=== PATIENT | female | born 1995 | race Caucasian/White ===

== ENCOUNTER 2020-01-23 09:15 | Emergency (ER) | payer SELFPAY ==
[2020-01-23 11:09] LABS: Absolute Lymphocytes (CBC) 2.1 K/uL (0.7-4.9); Basophils % 0.5 % (0-1.3); Hematocrit 45.5 % (36.0-45.0); Lymphocytes % 30.3 % (15.3-44.8); MPV 9.2 fL (7.6-11.3)
[2020-01-23 11:26] LABS: ALT/SGPT 28 U/L (12-78); AST/SGOT 15 U/L (15-37); Albumin 4.3 g/dL (3.4-5.0); Alkaline Phosphatase 58 U/L (45-117); BUN Blood Urea Nitrogen 9 mg/dL (7-18); Bicarbonate 28 mmol/L (21-32); Bilirubin Direct < 0.1 mg/dL (0-0.2); Bilirubin Total 0.3 mg/dL (0.2-1.0); Glucose Level 96 mg/dL (74-106); Lipase 76 U/L (73-393); Potassium 3.8 mmol/L (3.5-5.1); Protein, Total 8.2 g/dL (6.4-8.2); Sodium Level 139 mmol/L (136-145)
[2020-01-23 12:05] LABS: Urine Blood NEGATIVE (NEG); Urine Glucose NEGATIVE (NEG); Urine Protein NEGATIVE (NEG); Urine pH 5.5 (5.0-7.0)
--- NOTE | 2020-01-23 12:12 | RAD REPORT ---
EXAM DESCRIPTION: CT - Abdomen Pelvis W Contrast - 01/23/2020 11:49 am CLINICAL HISTORY: ABD PAIN COMPARISON: Abdomen Pelvis W Contrast dated 02/02/2017 TECHNIQUE: Biphasic, helical CT imaging of the abdomen and pelvis was performed following 100 ml non -ionic IV contrast. No oral contrast administered. All CT scans are performed using dose optimization technique as appropriate and may include automated exposure control or mA/KV adjustment according to patient size. FINDINGS: No suspicious findings in the lung bases. Liver shows a mild diffuse fatty infiltration. No focal liver lesion. Liver is upper normal in size n o spleen or pancreatic abnormality identified. Gallbladder and biliary tree within normal limits. Gal lstones can be occult but no suspicion for active gallbladder process. Symmetric renal function is seen with no hydronephrosis or suspicious renal mass. No pyelonephritis o r acute parenchymal process. Urinary bladder is contracted limiting detail. No bladder calculus. No a drenal abnormalities. No uterine abnormality. Normal size left ovary contains a 12 millimeter cyst. Normal size right ovary contains a 5.1 centimeter cyst. This is homogeneous in attenuation with no suspicious characteristic s other than size. No cyst rupture or hemorrhage identified. No dilated bowel loops or bowel wall thickening. No appendicitis findings. No free air, free fluid or inflammatory stranding. Patient has a very minimal 12 millimeter sized fat only umbilical hernia. N o other hernia. No mass or bulky lymphadenopathy. No suspicious bony findings. IMPRESSION: Contrast enhanced CT abdomen and pelvis showing no emergent finding. Patient has a 5.1 centimeter right ovarian cyst. No suspicious characteristics other than size. This can be monitored for involution with follow-up pelvic ultrasound in 3-4 months. Mild diffuse fatty infiltration of a upper normal size liver.
--- NOTE | 2020-01-23 12:28 | EDPHYS ---
Physician Documentation [facility] Name: Krystal Tanner Age: 24 yrs Sex: Female : 1995 Arrival Date: 01/23/2020 Time: 09:17 Bed 20 Private MD: ED Physician Abelino Teran HPI: 01/22 10:30 This 24 yrs old Female presents to ER via Ambulatory with complaints of jr8 Abdominal Pain, Low Back Pain. 10:30 The patient presents with abdominal pain in the lower abdomen. Onset: The jr8 symptoms/episode began/occurred gradually, 2 day(s) ago. The symptoms radiate to back. Associated signs and symptoms: Pertinent positives: diarrhea, nausea. The symptoms are described as crampy. Modifying factors: The symptoms are alleviated by nothing, the symptoms are aggravated by food. Severity of pain: At its worst the pain was moderate in the emergency department the pain is unchanged. The patient has experienced similar episodes in the past, several times. The patient has not recently seen a physician. Patient stated that she has been dealing with lower abdominal pain and diarrhea for several years. Came to ED today for worsening of pain. Has not been able to see GI physician . 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 - Social history:: Smoking status: Patient denies any tobacco usage or history of. ROS: 10:30 Eyes: Negative for injury, pain, redness, and discharge, ENT: Negative for injury, jr8 pain, and discharge, Neck: Negative for injury, pain, and swelling, Cardiovascular: Negative for chest pain, palpitations, and edema, Respiratory: Negative for shortness of breath, cough, wheezing, and pleuritic chest pain, Back: Negative for injury and pain, MS/Extremity: Negative for injury and deformity, Skin: Negative for injury, rash, and discoloration, Neuro: Negative for headache, weakness, numbness, tingling, and seizure. 10:30 Abdomen/GI: Positive for abdominal pain, nausea, diarrhea, abdominal cramps, Negative for hematemesis, black/tarry stool, rectal pain, rectal bleeding, bowel incontinence, flatulence. Exam: 10:30 Eyes: Pupils equal round and reactive to light, extra-ocular motions intact. Lids and jr8 lashes normal. Conjunctiva and sclera are non-icteric and not injected. Cornea within normal limits. Periorbital areas with no swelling, redness, or edema. ENT: Nares patent. No nasal discharge, no septal abnormalities noted. Tympanic membranes are normal and external auditory canals are clear. Oropharynx with no redness, swelling, or masses, exudates, or evidence of obstruction, uvula midline. Mucous membranes moist. Neck: Trachea midline, no thyromegaly or masses palpated, and no cervical lymphadenopathy. Supple, full range of motion without nuchal rigidity, or vertebral point tenderness. No Meningismus. Cardiovascular: Regular rate and rhythm with a normal S1 and S2. No gallops, murmurs, or rubs. Normal PMI, no JVD. No pulse deficits. Respiratory: Lungs have equal breath sounds bilaterally, clear to auscultation and percussion. No rales, rhonchi or wheezes noted. No increased work of breathing, no retractions or nasal flaring. Back: No spinal tenderness. No costovertebral tenderness. Full range of motion. Skin: Warm, dry with normal turgor. Normal color with no rashes, no lesions, and no evidence of cellulitis. MS/ Extremity: Pulses equal, no cyanosis. Neurovascular intact. Full, normal range of motion. Neuro: Awake and alert, GCS 15, oriented to person, place, time, and situation. Cranial nerves II-XII grossly intact. Motor strength 5/5 in all extremities. Sensory grossly intact. Cerebellar exam normal. Normal gait. 10:30 Abdomen/GI: Inspection: obese Bowel sounds: active, all quadrants, Palpation: soft, in all quadrants, mild abdominal tenderness, in the right lower quadrant and left lower quadrant, mass, is not appreciated, rebound tenderness, is not appreciated, voluntary guarding, is not appreciated, involuntary guarding, is not appreciated, no appreciated organomegaly, Indicators: McBurney's point is not tender, Retana's sign is negative, Rovsing's sign is negative, Liver: tenderness, is not appreciated. Vital Signs: 09:25 BP 147 / 90; Pulse 96; Resp 18; Temp 97.7; Pulse Ox 100% on R/A; Weight 139.25 kg; hb Height 5 ft. 3 in. (160.02 cm); Pain 10/10; 12:26 BP 142 / 98; Pulse 86; Resp 18; Pulse Ox 98% ; ah 12:45 BP 132 / 80; Pulse 83; Resp 17; Pulse Ox 97% ; ah 09:25 Body Mass Index 54.38 (139.25 kg, 160.02 cm) hb MDM: 10:09 Patient medically screened. [facility] 12:25 Data reviewed: vital signs, nurses notes, lab test result(s), radiologic studies, CT [facility] scan. Data interpreted: Pulse oximetry: on room air is 100 %. Interpretation: normal. Counseling: I had a detailed discussion with the patient and/or guardian regarding: the historical points, exam findings, and any diagnostic results supporting the discharge/admit diagnosis, lab results, radiology results, the need for outpatient follow up, a supervisor edging, to return to the emergency department if symptoms worsen or persist or if there are any questions or concerns that arise at home. Response to treatment: the patient's symptoms have mildly improved after treatment. ED course: No acute findings on CT or labs. Will d/c home to f/u with GI. Since diarrhea has been going on for so long and worsening will put on Abx . 01/22 10:09 Order name: Basic Metabolic Panel; Complete Time: : [facility] 01/22 10:09 Order name: CBC with Diff; Complete Time: 11: 01/22 10:09 Order name: Hepatic Function; Complete Time: : 01/22 10:09 Order name: Lipase; Complete Time: : [facility] 01/22 11:52 Order name: Urine Dipstick--Ancillary (enter results); Complete Time: 12: 01/22 11:56 Order name: Urine --Ancillary (enter results) 01/22 10:09 Order name: IV Saline Lock; Complete Time: : [facility] 01/22 10:09 Order name: Labs collected and sent; Complete Time: : [facility] 01/22 10:09 Order name: Urine Test (obtain specimen); Complete Time: 11: 01/22 10:09 Order name: Urine Dipstick-Ancillary (obtain specimen); Complete Time: : [facility] 01/22 11:28 Order name: CT Abd/Pelvis - IV Contrast Only; Complete Time: 12:18 jr8 Administered Medications: 12:28 Drug: TORadol - Ketorolac 15 mg Route: IVP; Site: right antecubital; 13:02 Follow up: Response: No adverse reaction 12:28 Drug: Bentyl 20 mg Route: PO; 13:02 Follow up: Response: No adverse reaction Disposition: 15:43 Co-signature as Attending Physician, Abelino Teran MD I agree with the assessment and kdr plan of care. Disposition: 01/23/20 12:27 Discharged to Home. Impression: Diarrhea, unspecified, Abdominal and pelvic pain. - Condition is Stable. - Discharge Instructions: Abdominal Pain, Adult, Diarrhea, Adult. - Prescriptions for Bentyl 20 mg Oral Tablet - take 1 tablet by ORAL route every 6 hours As needed; 20 tablet. Cipro 500 mg Oral Tablet - take 1 tablet by ORAL route every 12 hours for 10 days; 20 tablet. Flagyl 500 mg Oral Tablet - take 1 tablet by ORAL route every 6 hours for 10 days; 40 tablet. Zofran 4 mg Oral Tablet - take 1 tablet by ORAL route every 12 hours As needed; 20 tablet. - Medication Reconciliation Form, Thank You Letter, Antibiotic Education, Prescription Opioid Use form. - Follow up: Nancy Dalal MD; When: 2 - 3 days; Reason: Recheck today's complaints, Continuance of care, Re-evaluation by your physician. - Problem is new. - Symptoms have improved. Signatures: Dispatcher [employer] EDMS Abelino Teran MD MD [facility] Bridger Cadet PA PA jr8 Sharri Del Rio RN RN Jud Leggett RN RN Corrections: (The following items were deleted from the chart) 13:09 12:27 01/23/2020 12:27 Discharged to Home. Impression: Diarrhea, unspecified; Abdominal ah and pelvic pain. Condition is Stable. Forms are Medication Reconciliation Form, Thank You Letter, Antibiotic Education, Prescription Opioid Use. Follow up: Nancy Dalal; When: 2 - 3 days; Reason: Recheck today's complaints, Continuance of care, Re-evaluation by your physician. Problem is new. Symptoms have improved. jr8
--- NOTE | 2020-01-23 12:28 | ER ---
Nurse's Notes [facility] Name: Krystal Tanner Age: 24 yrs Sex: Female : 1995 Arrival Date: 01/23/2020 Time: 09:17 Bed 20 Private MD: Diagnosis: Diarrhea, unspecified;Abdominal and pelvic pain Presentation: 01/22 09:25 Chief complaint: lower abdominal pain and N?V/D x 2 days. Coronavirus screen: Proceed hb with normal triage. Ebola Screen: No symptoms or risks identified at this time. Initial Sepsis Screen: Does the patient meet any 2 criteria? HR > 90 bpm. No. Patient's initial sepsis screen is negative. Does the patient have a suspected source of infection? No. Patient's initial sepsis screen is negative. Risk Assessment: Do you want to hurt yourself or someone else?. Onset of symptoms was January 20, 2020. 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 - Social history:: Smoking status: Patient denies any tobacco usage or history of. Screenin:05 Abuse screen: Denies threats or abuse. Nutritional screening: No deficits noted. Tuberculosis screening: No symptoms or risk factors identified. Fall Risk None identified. Assessment: 10:10 General: Appears in no apparent distress. Behavior is calm, cooperative, appropriate ah for age. Pain: Complains of pain in right lower quadrant and left lower quadrant. Neuro: Level of Consciousness is awake, alert, obeys commands, Oriented to person, place, time, situation, Appropriate for age. Cardiovascular: Denies chest pain, Heart tones S1 S2 Capillary refill < 3 seconds Patient's skin is warm and dry. Respiratory: Airway is patent Respiratory effort is even, unlabored. GI: Bowel sounds present X 4 quads. Abdomen is tender to palpation in right lower quadrant and left lower quadrant. : Urine is clear. Derm: Skin is intact, is healthy with good turgor. 11:30 Reassessment: Patient and/or family updated on plan of care and expected duration. Pain ah level reassessed. Patient is alert, oriented x 3, equal unlabored respirations, skin warm/dry/pink. Awaiting on results from CT and labs. No needs voiced at this time. 13:00 Reassessment: Patient and/or family updated on plan of care and expected duration. Pain ah level reassessed. Discharge instructions given at this time and educated on prescriptions. Pt voiced understanding. Vital Signs: 09:25 BP 147 / 90; Pulse 96; Resp 18; Temp 97.7; Pulse Ox 100% on R/A; Weight 139.25 kg; hb Height 5 ft. 3 in. (160.02 cm); Pain 10/10; 12:26 BP 142 / 98; Pulse 86; Resp 18; Pulse Ox 98% ; ah 12:45 BP 132 / 80; Pulse 83; Resp 17; Pulse Ox 97% ; ah 09:25 Body Mass Index 54.38 (139.25 kg, 160.02 cm) hb ED Course: 09:17 Patient arrived in ED. ag5 09:22 Abelino Teran MD is Attending Physician. kdr 09:26 Triage completed. hb 09:27 Arm band placed on. hb 10:05 Bridger Cadet PA is PHCP. jr8 10:07 Jud Leggett, RN is Primary Nurse. ah 10:30 Inserted saline lock: 20 gauge in right antecubital area, using aseptic technique. ah 11:31 Radiology exam delayed due to test not completed at this time. sj 11:49 CT Abd/Pelvis - IV Contrast Only In Process Unspecified. EDMS 12:26 Nancy Dalal MD is Referral Physician. jr8 13:06 Patient has correct armband on for positive identification. Placed in gown. Bed in low ah position. Call light in reach. Side rails up X 1. Pulse ox on. NIBP on. 13:06 No provider procedures requiring assistance completed. IV discontinued, intact, ah bleeding controlled, No redness/swelling at site. Pressure dressing applied. Administered Medications: 12:28 Drug: TORadol - Ketorolac 15 mg Route: IVP; Site: right antecubital; 13:02 Follow up: Response: No adverse reaction ah 12:28 Drug: Bentyl 20 mg Route: PO; 13:02 Follow up: Response: No adverse reaction Outcome: 12:27 Discharge ordered by . jr8 13:06 Discharged to home ambulatory. 13:06 Condition: good 13:06 Discharge instructions given to patient, Instructed on discharge instructions, follow up and referral plans. Demonstrated understanding of instructions, follow-up care, medications, Prescriptions given X 4. 13:09 Patient left the ED. Signatures: Dispatcher [employer] EDMS Abelino Teran MD MD kdr Jones, Susan sj Roszak, Josh, PA PA jr8 Sharri Del Rio RN RN Jeronimo Bueno 5 Jud Leggett RN RN
[2020-01-23] MEDS ORDERED: KETOROLAC 30 MG/ML INJ ONE (12:30)
[2020-01-23] MEDS ORDERED: DICYCLOMINE HCL 10 MG CAP ONE (12:30)
[2020-01-23 13:25] VITALS: TEMP 97.7
[2020-01-23 13:30] VITALS: BP 132/80; O2SAT 97
== END 2020-01-23 13:09 | disposition home or self-care (01) ==
LOC: ER 09:15
DX: R19.7 Diarrhea, unspecified (principal)
CPT/HCPCS: 36415; 74177; 80048; 80076; 81003; 81025; 83690; 85025; 96374; 99284; Q9967

== ENCOUNTER 2022-12-24 15:39 | Emergency (ER) | payer SELFPAY ==
--- OUTSIDE RECORDS SUMMARY | 2022-12-24 15:42 | XMS REPORT | Continuity of Care Document ---
:1995 Author Organization [facility] t Address [address] [place] [id number] Care Team Providers Name Role Phone BOGDAN ELIAS Attending Clinician Unavailable Bogdan Elias MD Attending Clinician Doctor Unassigned, [place] Attending Clinician Unavailable Problems This patient has no known problems. Allergies, Adverse Reactions, Alerts Allergy Allergy Status Severity Reaction(s) Onset Inactive Treating Comm ents Source Name Type Date Date Clinician NO KNOWN Drug Active Univers ALLERGIE Class [facility] Social History Social Habit Start Date Stop Date Quantity Comments Source Sex Assigned At [facility] Exposure to Not sure [facility] SARS[facility] Tobacco use and 2020-04-05 2020-04-05 Never used [facility] exposure 00:00:00 00:00:00 [facility] Smoking Status Start Date Stop Date Source Unknown if ever smoked [facility] Never smoker [facility] Medications Ordered Filled Start Stop Current Ordering Indication Dosage Frequency Signature Comments Components Source Medication Medication Date Date Medication? Clinician (SIG) Name Name neomycin-po 2019-07 Yes INSTILL Uni vers lymyxin-dex 0-13 ONE (1) ity o f amethasone 00:00: DROP(S[place] 3.5mg/mL-10 00 EACH EYE Medi betsy ,000 EVERY Branch unit/mL-0.1 THREE % HOURS FOR ophthalmic 1 WEEK. suspension drops neomycin-po 2019-07 Yes INSTILL Uni vers lymyxin-dex 0-13 ONE (1) ity o f amethasone 00:00: DROP(S) [place] 3.5mg/mL-10 00 EACH EYE Medi betsy ,000 EVERY Branch unit/mL-0.1 THREE % HOURS FOR ophthalmic 1 WEEK. suspension drops ofloxacin 2019-07- No [id number] 2[drp] Place 2 Univers 0.3 % otic 0-05 10-20 Drops in ity of drops 00:00: 04:59 right ear [place] 00 :00 2 (two) Medical times Branch daily for 14 days. ofloxacin 2019-07- No [id number] 2[drp] Place 2 Univers 0.3 % otic 0-05 10-20 Drops in ity of drops 00:00: 04:59 right ear [place] 00 :00 2 (two) Medical times Branch daily for 14 days. amoxicillin 2019-07 Yes 1{tbl} Take 1 Un mg -clavulanat 0-02 tablet by ity of e 875-125 00:00: mouth 2 [place] mg per 00 (two) Medical tablet times Branch daily. amoxicillin 2019-07 Yes 1{tbl} Take 1 Un mg -clavulanat 0-02 tablet by ity of e 875-125 00:00: mouth 2 [place] mg per 00 (two) Medical tablet times Branch daily. amoxicillin 2019-07 Yes 1{tbl} Take 1 Un mg -clavulanat 0-02 tablet by ity of e 875-125 00:00: mouth 2 [place] mg per 00 (two) Medical tablet times Branch daily. amoxicillin 2019-07 Yes 1{tbl} Take 1 Un mg -clavulanat 0-02 tablet by ity of e 875-125 00:00: mouth 2 [place] mg per 00 (two) Medical tablet times Branch daily. naproxen 2017-0 Yes 550mg Take 1 Univer s sodium 550 6-28 tablet by ity of mg tablet 00:00: mouth 2 [place] 00 (two) Medical times Branch daily with meals. naproxen 2017-0 Yes 550mg Take 1 Univer s sodium 550 6-28 tablet by ity of mg tablet 00:00: mouth 2 [place] 00 (two) Medical times Branch daily with meals. naproxen 2017-0 Yes 550mg Take 1 Univer s sodium 550 6-28 tablet by ity of mg tablet 00:00: mouth 2 [place] 00 (two) Medical times Branch daily with meals. naproxen 2017-0 Yes 550mg Take 1 Univer s sodium 550 6-28 tablet by ity of mg tablet 00:00: mouth 2 [place] 00 (two) Medical times Branch daily with meals. naproxen 2017-0 Yes 550mg Take [address] [facility] sodium 550 6-28 tablet by ity of mg tablet 00:00: mouth 2 00 (two) [facility] daily with meals. Immunizations Ordered Filled Immunization Date Status Comments Sour e Immunization Name Name HEPATITIS A 2001-07-31 Completed University of 00:00:00 [facility] HEPATITIS A 2001-07-31 Completed University 00:00:00 [facility] HEPATITIS A 2001-07-31 Completed University 00:00:00 [facility] HEPATITIS A 2001-07-31 Completed University 00:00:00 [facility] HEPATITIS A 2001-07-31 Completed University 00:00:00 [facility] Vital Signs Vital Name Observation Time Observation Value Comments Source Body temperature 2020-05-10 14:40:00 36.56 [facility] Body height 2020-05-10 14:40:00 160 cm [facility] Body weight 2020-05-10 14:40:00 136.215 kg [facility] BMI 2020-05-10 14:40:00 53.20 kg/m2 [facility] Body temperature 2020-04-05 13:14:00 37.06 [facility] Body height 2020-04-05 13:14:00 160 cm [facility] Body weight 2020-04-05 13:14:00 134.463 kg [facility] BMI 2020-04-05 13:14:00 52.51 kg/m2 [facility] Procedures Procedure Date / Time Performed Performing Clinician Sour e REFERRAL- 2020-04-02 05:01:00 Doctor Unassigned, No [facility] REQUEST/RESPONSE Name Medical [place] Encounters Start End Encounter Admission Attending Care Care Encounter Source Date/Time Date/Time Type Type Clinicians Facility Department ID 2020-05-10 2020-05-10 Outpatient R CURT RIWALDO [facility] [id number] Univers 08:30:00 08:30:00 BOGDAN milian [facility] 2020-05-10 2020-05-10 Office Curt RIWALDO [id number] Univers 08:12:58 08:27:58 Visit Bogdan JAMISON [id number] i ty of [facility] [id number] [id number] [address] 2020-04-05 2020-04-05 Office [facility] [id number] [facility] 07:53:36 09:01:14 Visit Bogdan JAMISON [id number] i ty of [facility] [id number] [id number] [address] 2020-04-05 2020-04-05 [facility] [id number] Univers 08:15:00 08:15:00 BOGDAN milian of [facility] 2020-04-02 2020-04-02 Orders Doctor HEIDI [id number] Univers 00:00:00 00:00:00 Only Unassigned, JASSON [id number] ity of [place] [facility] [id number] [place] [id number] [place] [address] Branch Results This patient has no known results.
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
[2022-12-24 16:41] LABS: Absolute Lymphocytes (CBC) 3.5 K/uL (0.7-4.9); Lymphocytes % 32.7 % (15.3-44.8); MCV 83.9 fL (80-100); RBC Red Blood Cell Count 5.12 M/uL (3.86-4.86)
[2022-12-24] MEDS ORDERED: CEFAZOLIN SODIUM 1 GM/VIAL ONE (16:41)
[2022-12-24] MEDS ORDERED: NA CHLORIDE 0.9% 1,000 ML ONE (16:42)
[2022-12-24] MEDS ORDERED: FENTANYL CITR 100 MCG/2 ML ONE ×2 (16:42→17:40)
[2022-12-24] MEDS ORDERED: TETANUS & DIPHTHERIA TOX,ADULT 0.5 ML VIAL ONE (16:42)
[2022-12-24 16:44] LABS: Specific Gravity 1.005 (1.005-1.030)
[2022-12-24 16:54] LABS: Potassium 3.7 mEq/L (3.5-5.1)
[2022-12-24] MEDS ORDERED: NA CHLORIDE 0.9% 100 ML ONE (17:02)
[2022-12-24] MEDS ORDERED: ONDANSETRON 4 MG/2 ML VIAL ONE (17:12)
[2022-12-24] MEDS ORDERED: IBUPROFEN 400 MG TAB ONE (17:41)
[2022-12-24] MEDS ORDERED: HYDROCODONE/APAP 7.5/325 MG TAB ONE (17:41)
[2022-12-24 18:46] LABS: Urine Bacteria <20 /HPF (<20); Urine Bilirubin NEGATIVE (Negative); Urine Blood 2+ (Negative); Urine Clarity Clear (Clear); Urine Color Light-Yellow (Yellow); Urine Glucose NEGATIVE (Negative); Urine Mucus Slight /HPF (None Seen); Urine Protein TRACE (Negative); Urine RBC <5 /HPF (None Seen); Urine Urobilinogen Normal (Normal)
[2022-12-24] MEDS ORDERED: LIDOCAINE 1% W/EPI 1:100,000 50 ML MDV ONE (18:46)
--- NOTE | 2022-12-24 18:58 | RAD REPORT ---
EXAM DESCRIPTION: RAD - Shoulder Left 2 View - 12/24/2022 6:39 pm CLINICAL HISTORY: PAIN COMPARISON: No comparisons FINDINGS: Widening of the AC joint is seen which could represent a grade 1 separation. No acute frac tures seen.
[2022-12-24 18:59] LABS: Specific Gravity > 1.030 (1.005-1.030)
--- NOTE | 2022-12-24 19:00 | RAD REPORT ---
EXAM DESCRIPTION: RAD - Hand Left 3 View - 12/24/2022 6:39 pm CLINICAL HISTORY: PAIN COMPARISON: No comparisons FINDINGS: Lucency is seen involving the base of the fifth metacarpal, likely nondisplaced fracture. No dislocation.
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
[2022-12-24 20:46] VITALS: TEMP 98.8
[2022-12-24 20:52] VITALS: BP 138/102; O2SAT 97
== END 2022-12-24 20:36 | disposition home or self-care (01) ==
LOC: ER 15:39
PROC: 0HQ1XZZ Repair Face Skin, External Approach (ICD-10-PCS; principal; 2022-12-24)
DX: S01.112A Laceration without foreign body of left eyelid and periocular area, initial encounter (principal); S62.347A Nondisplaced fracture of base of fifth metacarpal bone, left hand, initial encounter for closed fracture; S43.122A Dislocation of left acromioclavicular joint, 100%-200% displacement, initial encounter; Z23 Encounter for immunization
CPT/HCPCS: 36415; 70450; 70486; 71260; 72125; 74177; 80048; 81001; 81025; 85025; 86850; 86900; 86901; 90471; 90714; 96361; 96365; 96366; 96375; 99285; J0690; J2405; J3010; J7030; Q9967

== ENCOUNTER 2023-01-03 10:53 | Emergency (ER) | payer SELFPAY ==
--- OUTSIDE RECORDS SUMMARY | 2023-01-03 10:56 | XMS REPORT | Continuity of Care Document ---
:1995 Author Organization [facility] t Address [address] [place] [address] [place] [id number] Care Team Providers Name Role Phone BOGDAN ELIAS Attending Clinician Unavailable Bogdan Elias MD Attending Clinician Doctor Unassigned, [place] Attending Clinician Unavailable Problems This patient has no known problems. Allergies, Adverse Reactions, Alerts Allergy Allergy Status Severity Reaction(s) Onset Inactive Treating Comm ents Source Name Type Date Date Clinician NO KNOWN Drug Active [facility] Social [facility] Social Habit Start Date Stop Date Quantity Comments Source Sex Assigned At [facility] Exposure to Not sure [facility] SARS-CoV-2 (event) [facility] Tobacco use and 2020-04-05 2020-04-05 Never used [facility] exposure 00:00:00 00:00:00 [facility] Smoking Status Start Date Stop Date Source Unknown if ever smoked [facility] Never smoker [facility] Medications Ordered Filled Start Stop Current [...] 1 WEEK. suspension drops ofloxacin 2019-07- No [id number] 2[drp] Place 2 [facility] 0.3 % otic 0-05 10-20 Drops in ity of drops 00:00: 04:59 right ear [place] 00 :00 2 (two) [facility] daily for 14 days. ofloxacin 2019-07- No [id number] 2[drp] Place 2 [facility] 0.3 % otic [...] meals. naproxen 2017-0 Yes 550mg Take 1 Univ s sodium 550 6-28 tablet by ity of mg tablet 00:00: mouth 2 [place] (two) [facility] daily with meals. Immunizations Ordered Filled Immunization Date Status Comments Sour e Immunization Name Name HEPATITIS A 2001-07-31 Completed [facility] 00:00:00 [facility] HEPATITIS A 2001-07-31 Completed University 00:00:00 [facility] HEPATITIS A 2001-07-31 Completed [facility] 00:00:00 [facility] HEPATITIS A 2001-07-31 Completed [facility] 00:00:00 [facility] HEPATITIS A 2001-07-31 Completed [facility] 00:00:00 [facility] Vital Signs Vital Name Observation Time Observation Value Comments Source Body temperature 2020-05-10 14:40:00 36.56 Leanna [facility] Body height 2020-05-10 14:40:00 160 cm [facility] Body weight 2020-05-10 14:40:00 136.215 kg [facility] BMI 2020-05-10 14:40:00 53.20 kg/m2 [facility] Body temperature 2020-04-05 13:14:00 37.06 Leanna [facility] Body height 2020-04-05 13:14:00 160 cm [facility] Body weight 2020-04-05 13:14:00 134.463 kg [facility] BMI 2020-04-05 13:14:00 52.51 kg/m2 [facility] Procedures Procedure Date / Time Performed Performing Clinician Sour e REFERRAL- 2020-04-02 05:01:00 Doctor Unassigned, No [facility] REQUEST/RESPONSE Name Medical Branch Encounters Start End Encounter Admission Attending Care Care Encounter Source Date/Time Date/Time Type Type Clinicians Facility Department ID 2020-05-10 2020-05-10 Outpatient R CURT RIWALDO [facility] [id number] [facility] 08:30:00 08:30:00 BOGDAN milian [facility] 2020-05-10 2020-05-10 Office Curt RIWALDO [id number] [facility] 08:12:58 08:27:58 Visit Bogdan JAMISON [id number] i ty of [facility] [id number] [place] [id number] [address] 2020-04-05 2020-04-05 Office Curt [facility] [id number] [facility] 07:53:36 09:01:14 Visit Bogdan JAMISON [id number] i ty of [facility] [id number] [id number] [address] 2020-04-05 2020-04-05 [id number] [facility] 08:15:00 08:15:00 BOGDAN milian [facility] 2020-04-02 2020-04-02 Orders Doctor HEIDI [id number] Univers 00:00:00 00:00:00 Only Unassigned, JASSON [id number] ity of [place] [facility] [id number] [place] [id number] [place] [id number] Branch Results This patient has no known results.
--- NOTE | 2023-01-03 11:14 | EDPHYS ---
Physician Documentation [facility] Name: Krystal Tanner Age: 27 yrs Sex: Female : 1995 Arrival Date: 01/03/2023 Time: 10:53 Bed 12 Private MD: ED Physician Vincent Birch HPI: 01/03 13:40 This 27 yrs old Female presents to ER via Ambulatory with complaints of Suture Removal. kb 13:40 The patient has sutures on the left supraorbital ridge. Previous treatment: The patient kb was initially treated 10 day(s) ago, the [facility] was [facility] at [facility], Treatment type: The patient's original treatment included sutures. 13:40 Sutures/hina progress: The patient has no c/o's. The wound is well-healing with no kb redness, swelling, discharge, or dehiscence reported. The patient has not experienced similar symptoms in the past. The patient has not recently seen a physician. Historical: - Allergies: 10:56 No Known Allergies; ld1 - PMHx: 10:56 None; ld1 - PSHx: 10:56 ovarian cyst SX; ld1 - Immunization history:: Adult Immunizations up to date. - Social history:: Smoking status: Patient denies any tobacco usage or history of. Patient/guardian denies using alcohol. ROS: 13:41 Constitutional: Negative for fever, chills, and weight loss. kb 13:41 Skin: Positive for of the left supraorbital ridge, sutures in place. 13:41 All other systems are negative. Exam: 13:41 Constitutional: This is a well developed, well nourished patient who is awake, alert, kb and in no acute distress. Head/Face: Normocephalic, atraumatic. ENT: Moist Mucous membranes Cardiovascular: Regular rate and rhythm with a normal S1 and S2. No gallops, murmurs, or rubs. No pulse deficits. Respiratory: Respirations even and unlabored. No increased work of breathing. Talking in full sentences Abdomen/GI: Soft, non-tender. No distention Neuro: Awake and alert, GCS 15, oriented to person, place, time, and situation. Moves all extremities. Normal gait. 13:41 Skin: Wound recheck: Suture laceration closure: the wound is healing well, the edges are well approximated, no evidence of dehiscence, no drainage, no erythema, no swelling. Vital Signs: 11:00 BP 139 / 76; Pulse 79; Resp 18; Temp 97.9(TE); Pulse Ox 100% on R/A; Weight 107.05 kg; ld1 Height 5 ft. 6 in. ; Pain 0/10; 11:00 Body Mass Index 38.09 (107.05 kg, 167.64 cm) ld1 11:00 Pain Scale: Adult ld1 Procedures: 11:13 Suture/Staple removal: Removed 3 sutures, from left supraorbital ridge, site appears kb well healed, Patient tolerated well. MDM: 10:55 Patient medically screened. kb 13:42 Data reviewed: vital signs, nurses notes. Counseling: I had a detailed discussion with kb the patient and/or guardian regarding: the historical points, exam findings, and any diagnostic results supporting the discharge/admit diagnosis, the need for outpatient follow up, a family practitioner, to return to the emergency department if symptoms worsen or persist or if there are any questions or concerns that arise at home. Administered Medications: No medications were administered Disposition: 14:15 Co-signature as Attending Physician, Vincent Birch DO I was immediately available on-site ms3 in the Emergency Department for consultation in the care of the patient. Disposition Summary: 01/03/23 11:13 Discharge Ordered Location: Home Condition: Stable kb Diagnosis - Encounter for removal of sutures kb Followup: kb - With: Emergency Department - When: As needed - Reason: Worsening of condition Followup: kb - With: Private Physician - When: 2 - 3 days - Reason: Recheck today's complaints, Continuance of care, Re-evaluation by your physician Discharge Instructions: - Discharge Summary Sheet kb - Suture Removal, Care After kb Forms: - Medication Reconciliation Form kb - Thank You Letter kb - Antibiotic Education kb - Prescription Opioid Use kb - [email or web address] kb Signatures: Vy Fajardo FNP-C FNP-Vincent Estrella DO DO ms3 Leatha Birch RN RN ld1 Corrections: (The following items were deleted from the chart) 13:41 13:40 Previous treatment: The patient was initially treated kb eze
--- NOTE | 2023-01-03 11:14 | ER ---
Nurse's Notes [facility] Name: Krystal Tanner Age: 27 yrs Sex: Female : 1995 Arrival Date: 01/03/2023 Time: 10:53 Bed 12 Private MD: Diagnosis: Encounter for removal of sutures Presentation: 01/03 10:56 Chief complaint: Chief complaint: Patient states: suture removal. ld1 10:56 Coronavirus screen: At this time, the client does not indicate any symptoms associated ld1 with coronavirus-19. Ebola Screen: No symptoms or risks identified at this time. Risk Assessment: Do you want to hurt yourself or someone else? Patient reports no desire to harm self or others. Onset of symptoms was January 03, 2023 at 10:58. 10:56 Method Of Arrival: Ambulatory ld1 10:56 Acuity: ROMAN 4 ld1 11:00 Initial Sepsis Screen: Does the patient meet any 2 criteria? No. Patient's initial ld1 sepsis screen is negative. Does the patient have a suspected source of infection? No. Patient's initial sepsis screen is negative. Triage Assessment: 10:56 General: Appears in no apparent distress. comfortable, Behavior is calm, cooperative, ld1 appropriate for age. Pain: Denies pain. EENT: No signs and/or symptoms were reported regarding the EENT system. Neuro: Level of Consciousness is awake, alert, obeys commands, Oriented to person, place, time, situation. Cardiovascular: Capillary refill < 3 seconds Patient's skin is warm and dry. Respiratory: Airway is patent Respiratory effort is even, unlabored. GI: Abdomen is round non-distended. : No signs and/or symptoms were reported regarding the genitourinary system. Derm: No signs and/or symptoms reported regarding the dermatologic system. Musculoskeletal: No signs and/or symptoms reported regarding the musculoskeletal system. Historical: - Allergies: 10:56 No Known Allergies; ld1 - PMHx: 10:56 None; ld1 - PSHx: 10:56 ovarian cyst SX; ld1 - Immunization history:: Adult Immunizations up to date. - Social history:: Smoking status: Patient denies any tobacco usage or history of. Patient/guardian denies using alcohol. Screenin:00 [facility] ED Fall Risk Assessment (Adult) History of falling in the last 3 months, ld1 including since admission No falls in past 3 months (0 pts). Abuse screen: Denies threats or abuse. Denies injuries from another. Nutritional screening: No deficits noted. Tuberculosis screening: No symptoms or risk factors identified. Assessment: 11:00 Reassessment: See triage assessment. ld1 Vital Signs: 11:00 BP 139 / 76; Pulse 79; Resp 18; Temp 97.9(TE); Pulse Ox 100% on R/A; Weight 107.05 kg; ld1 Height 5 ft. 6 in. ; Pain 0/10; 11:00 Body Mass Index 38.09 (107.05 kg, 167.64 cm) ld1 11:00 Pain Scale: Adult ld1 ED Course: 10:54 Patient arrived in ED. am2 10:55 Vy Fajardo FNP-C is PHCP. kb 10:55 Vincent Birch DO is Attending Physician. kb 10:58 Triage completed. ld1 11:00 Arm band placed on right wrist. ld1 11:00 Patient has correct armband on for positive identification. Bed in low position. Call ld1 light in reach. Side rails up X2. Pulse ox on. NIBP on. Door closed. Noise minimized. Warm blanket given. 11:00 No provider procedures requiring assistance completed. Patient did not have IV access ld1 during this emergency room visit. 11:09 Skylar Crespo, RN is Primary Nurse. ss Administered Medications: No medications were administered Medication: 11:00 VIS not applicable for this client. ld1 Outcome: 11:13 Discharge ordered by MD. kb 11:17 Discharged to home ambulatory. ss 11:17 Condition: good 11:17 Discharge instructions given to patient, Instructed on discharge instructions, follow up and referral plans. wound care, Demonstrated understanding of instructions, follow-up care. 11:17 Patient left the ED. ss Signatures: Vy Fajardo FNP-C FNP-Skylar Ballesteros, TAYLOR RN Estela Chairez am2 Leatha Birch RN RN ld1 Corrections: (The following items were deleted from the chart) 10:58 10:56 Chief complaint: ld1 ld1
[2023-01-03 11:30] VITALS: BP 139/76; TEMP 97.9; O2SAT 100
== END 2023-01-03 11:17 | disposition home or self-care (01) ==
LOC: ER 10:53
DX: Z48.02 Encounter for removal of sutures (principal)
CPT/HCPCS: 99283

== ENCOUNTER 2023-04-24 10:22 | Emergency (ER) | payer SELFPAY ==
--- OUTSIDE RECORDS SUMMARY | 2023-04-24 10:26 | XMS REPORT | Continuity of Care Document ---
:1995 Author Organization [facility] t Address [address] [place] [address] [place] [id number] Care Team Providers Name Role Phone BOGDAN ELIAS Attending Clinician Unavailable Bogdan Elias MD Attending Clinician Doctor Unassigned, [place] Attending Clinician Unavailable Problems This patient has no known problems. Allergies, Adverse Reactions, Alerts Allergy Allergy Status Severity Reaction(s) Onset Inactive Treating Comm ents Source Name Type Date Date Clinician NO KNOWN Drug Active [facility] Social History Social Habit Start Date Stop Date Quantity Comments Source Sex Assigned At [facility] Exposure to Not sure [facility] SARS-CoV-2 (event) [facility] Tobacco use and 2020-04-05 2020-04-05 Never used [facility] exposure 00:00:00 00:00:00 [facility] Smoking Status Start Date Stop Date Source Unknown if ever smoked [facility] Never smoker [facility] Medications Ordered Filled Start Stop Current Ordering [...] 1 WEEK. suspension drops ofloxacin 2019-07- No [id number] 2[drp] Place 2 [facility] 0.3 % otic 0-05 10-20 Drops in ity of drops 00:00: 04:59 right ear [place] 00 :00 2 (two) Medical times Branch daily for 14 days. ofloxacin 2019-07- No [id number] 2[drp] Place 2 [facility] 0.3 % otic [...] meals. naproxen 2017-0 Yes 550mg Take 1 [facility] s sodium 550 6-28 tablet by ity of mg tablet 00:00: mouth 2 [place] (two) [facility] daily with meals. Vital Signs Vital Name Observation Time Observation Value Comments Source Body temperature 2020-05-10 14:40:00 36.56 Leanna [facility] Body height 2020-05-10 14:40:00 160 cm Universi ty [facility] Body weight 2020-05-10 14:40:00 136.215 kg [facility] BMI 2020-05-10 14:40:00 53.20 kg/m2 [facility] Body temperature 2020-04-05 13:14:00 37.06 Leanna [facility] Body height 2020-04-05 13:14:00 160 cm [facility] Body weight 2020-04-05 13:14:00 134.463 kg [facility] BMI 2020-04-05 13:14:00 52.51 kg/m2 [facility] Procedures Procedure Date / Time Performed Performing Clinician Sourc e REFERRAL- 2020-04-02 05:01:00 Doctor Unassigned, No [facility] REQUEST/RESPONSE Name [facility] Encounters Start End Encounter Admission Attending Care Care Encounter Source Date/Time Date/Time Type Type Clinicians Facility Department ID 2020-05-10 2020-05-10 Outpatient [facility] [id number] Univers 08:30:00 08:30:00 BOGDAN milian [facility] 2020-05-10 2020-05-10 Office [facility] [id number] Univers 08:12:58 08:27:58 Visit Bogdan JAMISON [id number] i ty of [id number] [place] [phone] [address] 2020-04-05 2020-04-05 Office [facility] [id number] Univers 07:53:36 09:01:14 Visit Bogdan JAMISON [id number] i ty [place] [id number] [phone] [facility] [address] 2020-04-05 2020-04-05 Outpatient R [facility] [id number] [facility] 08:15:00 08:15:00 BOGDAN ity of [facility] 2020-04-02 2020-04-02 Orders Doctor HEIDI [id number] Univers 00:00:00 00:00:00 Only Unassigned, JASSON [id number] ity of [place] [facility] [id number] [place] [phone] [facility] [address] Results This patient has no known results.
--- NOTE | 2023-04-24 10:49 | ER ---
Nurse's Notes [facility] Name: Krystal Tanner Age: 27 yrs Sex: Female : 1995 Arrival Date: 04/24/2023 Time: 10:22 Bed IW1 Private MD: Diagnosis: Facial Numbness Presentation: 04/24 10:33 Chief complaint: Patient states: after fall injury and stitches on December 24, numbness in 3 left eyebrow/forehead, c/o intermittent pain radiating into left temporal lobe for past month and throat swelling started in past couple days. Ebola Screen: No symptoms or risks identified at this time. Risk Assessment: Do you want to hurt yourself or someone else? Patient reports no desire to harm self or others. Onset of symptoms was April 24, 2023. 10:33 Method Of Arrival: Ambulatory [facility] 10:33 Acuity: ROMAN 3 [facility] 10:39 Initial Sepsis Screen: Does the patient meet any 2 criteria? HR > 90 bpm. No. Patient's [facility] initial sepsis screen is negative. Does the patient have a suspected source of infection? No. Patient's initial sepsis screen is negative. 10:42 Coronavirus screen: Vaccine status: Patient reports being unvaccinated. [facility] Triage Assessment: 10:33 General: Appears distressed, uncomfortable, Behavior is cooperative, appropriate for [facility] age, anxious. Pain: Complains of pain in face Pain radiates to left temporal area. EENT: Throat is clear has enlarged tonsils Reports pain in left side of forehead and left temporal area. Neuro: Level of Consciousness is awake, alert, obeys commands, Oriented to person, place, time, situation. Cardiovascular: Capillary refill < 3 seconds Patient's skin is warm and dry. Respiratory: Airway is patent Respiratory effort is even, unlabored, Respiratory pattern is regular, symmetrical. 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 - Social history:: Smoking status: Patient reports the use of cigarette tobacco products, denies chronic smoking, but will smoke occasionally. Screenin:[facility] Fall Risk Assessment (Adult) History of falling in the last 3 months, ap3 including since admission No falls in past 3 months (0 pts). Abuse screen: Denies threats or abuse. Nutritional screening: No deficits noted. Tuberculosis screening: No symptoms or risk factors identified. Assessment: 10:59 Respiratory: Airway is patent Respiratory effort is even, unlabored, Respiratory ap3 pattern is regular, symmetrical, Vital Signs: 10:39 BP 139 / 81; Pulse 107; Resp 18; Pulse Ox 100% on R/A; Weight 147.42 kg; Height 5 ft. 3 eh3 in. ; Pain 6/10; 10:39 Body Mass Index 57.57 (147.42 kg, 160.02 cm) eh3 10:39 Pain Scale: Adult 3 ED Course: 10:31 Patient arrived in ED. mg5 10:32 Prashant Grimm MD is Attending Physician. ec2 10:33 Arm band placed on. eh3 10:37 Triage completed. eh3 10:59 Patient has correct armband on for positive identification. Provided Education on: ap3 discharge instructions . 10:59 No provider procedures requiring assistance completed. Patient did not have IV access ap3 during this emergency room visit. Administered Medications: No medications were administered Medication: 10:59 VIS not applicable for this client. ap3 Outcome: 10:49 Discharge ordered by . ec2 10:59 Discharged to home ambulatory, ap3 10:59 Condition: good 10:59 Discharge instructions given to patient, Instructed on discharge instructions, follow up and referral plans. medication usage, Demonstrated understanding of instructions, follow-up care, medications, Prescriptions given X 2, 11:00 Patient left the ED. ap3 Signatures: Estela Jonas RN RN ap3 Sara Lambert RN RN 3 Annalise Collins mg5 Prashant Grimm MD MD ec2 Corrections: (The following items were deleted from the chart) 10:44 10:39 BP 139 / 81; Pulse 107bpm; Resp 18bpm; Pulse Ox 100% RA; eh3 eh3
--- NOTE | 2023-04-24 10:49 | EDPHYS ---
Physician Documentation [facility] Name: Krystal Tanner Age: 27 yrs Sex: Female : 1995 Arrival Date: 04/24/2023 Time: 10:22 Bed IW1 Private MD: ED Physician Prashant Grimm HPI: 04/24 10:33 This 27 yrs old Female presents to ER via Unassigned with complaints of Numbness - ec2 EYEBROW, Sore Throat - GLAND SWELLING, Dizziness. 10:44 This 27 yrs old Female presents to ER via Ambulatory with complaints of Numbness - ec2 EYEBROW, Sore Throat - GLAND SWELLING, Dizziness. 10:44 Patient arrives today due to concern for complaints of left upper eyebrow numbness as ec2 well as anterior neck swelling. Patient reports she had an injury recently to the left upper eyebrow where she sustained a laceration that subsequently required repair, states that she been having some numbness and tingling as well as excruciating pain in the area. Patient reports no new trauma or injury. Patient reports for the past couple days they have been having some anterior neck swelling as well. Patient reports no pain with swallowing, no issues with secretions, no fevers or chills, no nausea or vomiting.. 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 - Social history:: Smoking status: Patient reports the use of cigarette tobacco products, denies chronic smoking, but will smoke occasionally. ROS: 10:44 Constitutional: as per hpi ec2 Exam: 10:44 Constitutional: GEN: NAD Head: atraumatic Neck: Anterior cervical ec2 lymphadenopathy Face: Patient is symmetrical, subjective decreased sensation in the left forehead Eyes: EOMI Ears: External ears are normal. Oropharynx: No tonsillar exudates, no issues with secretions, anterior cervical lymphadenopathy appreciated. CV: Tachycardia LUNGS: no respiratory distress ABD: non-distended SKIN: no evidence of rashes MSK: no evidence of trauma NEURO: moves all extremities equally 10:50 CT study not indicated or reported. Reason for not performing CT: not indicated ec2 Vital Signs: 10:39 BP 139 / 81; Pulse 107; Resp 18; Pulse Ox 100% on R/A; Weight 147.42 kg; Height 5 ft. 3 eh3 in. ; Pain 6/10; 10:39 Body Mass Index 57.57 (147.42 kg, 160.02 cm) 3 10:39 Pain Scale: Adult 3 MDM: 10:33 Patient medically screened. ec2 10:44 ED course: Patient arrives today due to concern for left facial numbness as well as ec2 left anterior cervical lymphadenopathy. Examination remarkable for such. I suspect patient is having neuropathic pain from the recent injury to the left face causing her facial numbness and pain. Patient also has a viral infection causing the anterior cervical lymphadenopathy as she has a clear oropharynx with no evidence of exudates and no evidence of deep space infection. I have a low clinical suspicion for strep pharyngitis requiring swabs at this time. I will start the patient on steroids as well as gabapentin and have her follow-up with a primary care doctor.. 10:44 Data reviewed: vital signs. ec2 Administered Medications: No medications were administered Disposition Summary: 04/24/23 10:49 Discharge Ordered Notes: Location: Home ec2 Condition: Stable ec2 Diagnosis - Facial Numbness ec2 Discharge Instructions: - Discharge Summary Sheet ec2 Forms: - Medication Reconciliation Form ec2 - Thank You Letter ec2 - Antibiotic Education ec2 - Prescription Opioid Use ec2 - Patient Portal Instructions ec2 - Leadership Thank You Letter ec2 Prescriptions: - gabapentin 300 mg Oral capsule - take 1 capsule ORAL route daily; 15 capsule; Refills: 0, Product Selection ec2 Permitted - Prednisone 20 mg Oral Tablet - take 2 tablets ORAL route once daily for 5 days; 10 tablet; Refills: 0, Product ec2 Selection Permitted Signatures: Sara Lambert RN RN 3 Prashant Grimm MD MD ec2 Corrections: (The following items were deleted from the chart) 10:48 10:44 Constitutional: GEN: NAD Head: atraumatic Neck: Anterior cervical lymphadenopathy ec2 Face: Patient is symmetrical, subjective decreased sensation in the left forehead Eyes: EOMI Ears: External ears are normal. CV: Tachycardia LUNGS: no respiratory distress ABD: non-distended SKIN: no evidence of rashes MSK: no evidence of trauma NEURO: moves all extremities equally ec2
== END 2023-04-24 11:00 | disposition home or self-care (01) ==
LOC: ER 10:22
DX: R20.0 Anesthesia of skin (principal)